=== PATIENT | female | born 1950 | race Caucasian/White ===

== ENCOUNTER 2016-11-11 05:38 | Emergency (ER) | payer MEDICARE, MEDICAID ==
[2016-11-11 05:49] VITALS: BP 140/74
[2016-11-11] MEDS ORDERED: Ketorolac 60 MG/2 ML SDV IM ONE (06:07)
[2016-11-11] MEDS ORDERED: Take Home: traMADol 50 MG, 4 Tab Pack PO ONE (06:11)
[2016-11-11] MEDS ORDERED: Take Home: Orphenadrine 100 MG Tab.ER, 4 Tab Pack PO ONE (06:12)
--- NOTE | 2016-11-11 06:27 | EDM.PDOC ---
ED HPI GENERAL MEDICAL PROBLEM - General Chief Complaint: Back Pain or Injury Stated Complaint: Back Pain Time Seen by Provider: 11/11/16 06:01 Source of Information: Reports: Patient History Limitations: Reports: No Limitations - History of Present Illness INITIAL COMMENTS - FREE TEXT/NARRATIVE: Patient states that she has chronic back pain which she is usually able to control with Ibuprofen, tylenol and a tens unit. She has been unsuccessful this time in treating her back pain. She states that it started yesterday all along the left lower part of her back. The pain does not radiate anywhere. She denies fever, chills, change in urinary pattern or pain with urination. She denies flank pain, SOB, cough, and chest pain. She has no history of a kidney stone. She denies recent and remote injury. She has a right lower extremity deformity which alters her posture and ability to walk normally. Onset: Gradual Onset Date: 11/11/16 Onset Time: 01:00 Duration: Hour(s): (6), Waxing/Waning (comes in spasms) Location: Reports: Back (L1 down to L5 on the left side) Quality: Reports: Ache, Sharp, Stabbing Severity: Moderate Improves with: Reports: None Worsens with: Reports: Movement Context: Reports: Activity, Lifting Associated Symptoms: Reports: No Other Symptoms Treatments [employer]: Reports: Acetaminophen, NSAIDS, Other (see below) (Tens unit) Back Pain Score (Numeric/FACES): 8 - Related Data Allergies Allergy/AdvReac Type Severity Reaction Status Date / Time No Known Allergies Allergy Verified 11/11/16 05:43 Home Meds: Home Meds Lisinopril 20 mg PO DAILY 08/23/16 [History] Omeprazole 20 mg PO BIDAC 08/23/16 [History] tiZANidine [Zanaflex] 4 mg PO Q6H #40 tablet 11/11/16 [Rx] traMADol [Ultram] 50 mg PO Q6H #40 tablet 11/11/16 [Rx] Past Medical History HEENT History: Reports: Otitis Media Cardiovascular History: Reports: Hypertension Gastrointestinal History: Reports: GERD - Past Surgical History Musculoskeletal Surgical History: Reports: Knee Replacement Social & Family History - Tobacco Use Smoking Status *Q: Former Smoker ED ROS GENERAL - Review of Systems Review Of Systems: See Below Constitutional: Reports: No Symptoms HEENT: Reports: No Symptoms Respiratory: Reports: No Symptoms Cardiovascular: Reports: No Symptoms Endocrine: Reports: No Symptoms GI/Abdominal: Reports: No Symptoms : Reports: No Symptoms Musculoskeletal: Reports: Back Pain, Muscle Pain, Muscle Stiffness Skin: Reports: No Symptoms Neurological: Reports: No Symptoms Psychiatric: Reports: No Symptoms Hematologic/Lymphatic: Reports: No Symptoms Immunologic: Reports: No Symptoms ED EXAM,LOWER BACK PAIN/INJURY - Physical Exam Exam: See Below Exam Limited By: No Limitations General Appearance: Alert, WD/WN, No Apparent Distress Head: Atraumatic, Normocephalic Neck: Normal Inspection, Supple, Non-Tender, Full Range of Motion Respiratory/Chest: No Respiratory Distress, Lungs Clear, Normal Breath Sounds, No Accessory Muscle Use, Chest Non-Tender Cardiovascular: Normal Peripheral Pulses, Regular Rate, Rhythm, No Edema, No Gallop, No JVD, No Murmur, No Rub GI/Abdominal: Normal Bowel Sounds, Soft, Non-Tender, No Organomegaly, No Distention, No Abnormal Bruit, No Mass, Other (No CVA tenderness) Back Exam: Normal Inspection, Decreased Range of Motion, Muscle Spasm, Paraspinal Tenderness, Vertebral Tenderness Extremities: Normal Inspection, Normal Range of Motion, Non-Tender, No Pedal Edema, Normal Capillary Refill, Other (Straight leg raise is negative. 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.) Neurological: Alert, Normal Mood/Affect, Normal Dorsiflexion, CN II-XII Intact, Normal Plantar Flexion, Normal Reflexes, No Motor/Sensory Deficits, Oriented x 3 , Abnormal Gait (walks with limp on the right side ) DTR - Lower Extremities: 2+: Knee (R), Knee (L), Ankle (R), Ankle (L) Psychiatric: Normal Affect, Normal Mood Skin Exam: Warm, Dry, Intact, Normal Color, No Rash Course - Vital Signs Last Recorded V/S: Last Vital Signs Temp 36.2 C 11/11/16 05:45 Pulse 74 11/11/16 05:45 Resp 16 11/11/16 05:45 BP 140/74 11/11/16 05:45 Pulse Ox 98 11/11/16 05:45 - Orders/Labs/Meds Orders: Active Orders 24 hr Category Date Time Status Orphenadrine [Norflex] Med 11/11/16 06:15 Ordered 60 mg IM Q12H Medication Orders Orphenadrine Citrate (Norflex) 60 mg IM Q12H [facility] Meds: Medications Generic Name Dose Route Start Last Admin Trade Name Vicki PRN Reason Stop Dose Admin Orphenadrine Citrate 60 mg 11/11/16 06:15 Norflex IM Q12H SALLY Discontinued Medications Generic Name Dose Route Start Last Admin Trade Name Vicki PRN Reason Stop Dose Admin Ketorolac Tromethamine 60 mg 11/11/16 06:07 Toradol IM 11/11/16 06:08 ONETIME ONE Orphenadrine Citrate 1 packet 11/11/16 06:12 Take Home: Orphenadrine 100 Mg, 4 Tab Pack PO 11/11/16 06:13 ONETIME ONE Tramadol HCl 1 packet 11/11/16 06:11 Take Home: Tramadol 50 Mg, 4 Tab Pack PO 11/11/16 06:12 ONETIME ONE - Re-Assessments/Exams Free Text/Narrative Re-Assessment/Exam: 11/11/16 06:32 The patient is given injections of orphenadrine 60 mg IMand toradol 60 mg IM. She states that he pain is better and down to 5/10. She is given take home meds for tamadol and orphenadrine enough for 4 tablets of each today and then prescriptions for both to last her ten days. 11/11/16 06:41 Departure - Departure Time of Disposition: 06:45 Disposition: Home, Self-Care 01 Condition: good Clinical Impression: Back pain at L4-L5 level, Back pain of thoracolumbar region - Discharge Information Prescriptions: tiZANidine [Zanaflex] 4 mg PO Q6H #40 tablet traMADol [Ultram] 50 mg PO Q6H #40 tablet Instructions: Muscle Strain, [id number], Back Pain, Adult, [id number], Back Injury Prevention, [id number] Forms: ED Department Discharge - My Orders Last 24 Hours: My Active Orders 11/11/16 06:15 Orphenadrine [Norflex] 60 mg IM Q12H - Assessment/Plan Last 24 Hours: My Active Orders 11/11/16 06:15 Orphenadrine [Norflex] 60 mg IM Q12H Assessment:: Thoracic and Lumbar back pain Plan: Stretch and exercise daily. Use the muscle relaxant and pain medication as prescribed. Please don't drink alcohol or drive while taking the medication I have prescribed for you. You may use heat and ibuprofen as directed on the package .
== END 2016-11-11 06:50 | disposition home or self-care (01) ==
LOC: VM.ED 05:38
DX: M54.5 Low back pain (principal); M54.6 Pain in thoracic spine; I10 Essential (primary) hypertension; K21.9 Gastro-esophageal reflux disease without esophagitis; Z79.899 Other long term (current) drug therapy; Z96.659 Presence of unspecified artificial knee joint; Z87.891 Personal history of nicotine dependence
CPT/HCPCS: 96372; 99283; A9270; J1885; J2360

== ENCOUNTER 2017-11-11 22:00 | Emergency (ER) | payer MEDICARE, MEDICAID ==
[2017-11-11] MEDS ORDERED: Ketorolac 30 MG/ML SDV IM ONE (22:32)
[2017-11-11] MEDS ORDERED: Take Home: traMADol 50 MG, 4 Tab Pack PO ONE (22:32)
[2017-11-11] MEDS ORDERED: predniSONE 20 MG Tab PO ONE (22:32)
--- NOTE | 2017-11-11 22:37 | EDM.PDOC ---
ED HPI GENERAL MEDICAL PROBLEM - General Chief Complaint: Back Pain or Injury Stated Complaint: neck pain Time Seen by Provider: 11/11/17 22:08 Source of Information: Reports: Patient History Limitations: Reports: No Limitations - History of Present Illness INITIAL COMMENTS - FREE TEXT/NARRATIVE: Patient presents with neck pain for the last 4-5 days that intensified this evening. She has tried heat, ice, and tylenol. Took extra tizanadine. 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 No nausea, vomiting, shortness of breath, headache. Pain localized to left side of neck and shoulder. Limited range of motion. No recent injury or fall. Muscle tightness to the left neck. No fever, chills or night sweats. Onset: Gradual Onset Date: 11/07/17 Duration: Getting Worse Location: Reports: Neck Quality: Reports: Ache Severity: Moderate Improves with: Reports: Medication Worsens with: Reports: Movement - Related Data Allergies Allergy/AdvReac Type Severity Reaction Status Date / Time acetaminophen Allergy Vomiting Verified 11/11/17 22:11 [From Tylenol-Codeine #3] codeine Allergy Vomiting Verified 11/11/17 22:11 [From Tylenol-Codeine #3] Home Meds: Home Meds Omeprazole 20 mg PO BIDAC 08/23/16 [History] Lisinopril/Hydrochlorothiazide [Lisinopril-Hctz 20-12.5 mg Tab] 2 tab PO DAILY 11/11/17 [History] amLODIPine Besylate [Amlodipine Besylate] 5 mg PO DAILY 11/11/17 [History] tiZANidine [Zanaflex] 4 mg PO TID PRN 11/11/17 [History] Past Medical History HEENT History: Reports: Otitis Media Cardiovascular History: Reports: Hypertension Gastrointestinal History: Reports: GERD Musculoskeletal History: Reports: Back Pain, Chronic - Past Surgical History Musculoskeletal Surgical History: Reports: Knee Replacement Social & Family History - Tobacco Use Smoking Status *Q: Former Smoker Years of Tobacco use: 40 Packs/Tins Daily: 1.5 Used Tobacco, but Quit: Yes Month/Year Tobacco Last Used: 8 years ago ED ROS GENERAL - Review of Systems Review Of Systems: See Below Constitutional: Reports: No Symptoms HEENT: Reports: No Symptoms Respiratory: Reports: No Symptoms Cardiovascular: Reports: No Symptoms Endocrine: Reports: No Symptoms GI/Abdominal: Reports: No Symptoms : Reports: No Symptoms Musculoskeletal: Reports: Neck Pain Skin: Reports: No Symptoms Neurological: Reports: No Symptoms Psychiatric: Reports: No Symptoms Hematologic/Lymphatic: Reports: No Symptoms Immunologic: Reports: No Symptoms ED EXAM, UPPER BACK/NECK PAIN - Physical Exam Exam: See Below Exam Limited By: No Limitations General Appearance: Alert, WD/WN, Mild Distress Eye Exam: Bilateral Eye: EOMI, Normal Inspection, PERRL Ears Exam: Normal TMs Nose Exam: Normal Inspection, Normal Mucousa, No Blood Throat/Mouth Exam: Normal Inspection, Normal Lips, Normal Teeth, Normal Gums, Normal Oropharynx, Normal Voice, No Airway Compromise Head Exam: Atraumatic, Normocephalic Neck Exam: Stiff Neck, Tenderness Cardiovascular/Respiratory: Regular Rate, Rhythm, No M/R/G, Normal Peripheral Pulses, No JVD, Normal Breath Sounds, No Respiratory Distress GI/Abdominal: Normal Bowel Sounds, Soft, Non-Tender, No Organomegaly, No Distention, No Abnormal Bruit, No Mass Back Exam: Normal Inspection, Full Range of Motion, NT Extremities: Normal Inspection, Normal Range of Motion, Non-Tender, No Pedal Edema, Normal Capillary Refill 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, No Motor/Sensory Deficits, Alert, Normal Mood/Affect, Oriented x 3 Psychiatric: Normal Affect, Normal Mood Skin Exam: Normal Color, Warm/Dry Lymphatic: No Adenopathy Course - Vital Signs Last Recorded V/S: Last Vital Signs Temp 35.1 C L 11/11/17 22:04 Pulse 88 11/11/17 22:04 Resp 20 11/11/17 22:04 BP Pulse Ox 96 11/11/17 22:04 - Orders/Labs/Meds Meds: Medications Discontinued Medications Generic Name Dose Route Start Last Admin Trade Name Freq PRN Reason Stop Dose Admin Ketorolac Tromethamine 30 mg 11/11/17 22:32 11/11/17 22:44 Toradol IM 11/11/17 22:33 30 mg ONETIME ONE Administration Prednisone 20 mg 11/11/17 22:32 11/11/17 22:42 Prednisone PO 11/11/17 22:33 20 mg ONETIME ONE Administration Tramadol HCl 1 packet 11/11/17 22:32 11/11/17 22:42 Take Home: Tramadol 50 Mg, 4 Tab Pack PO 11/11/17 22:33 1 packet ONETIME ONE Administration Departure - Departure Time of Disposition: 22:44 Disposition: Home, Self-Care 01 Condition: Good Clinical Impression: Neck pain on left side - Discharge Information Instructions: Cervical Radiculopathy, [id number] Referrals: Barney Cazares MD [Physician] - Forms: ED Department Discharge Additional Instructions: Follow up with your primary provider for additional testing if your pain does not improve over the next 2-3 days. Physical therapy evaluation should also be considered. MRI may be needed which we do not offer on an emergent basis. Please continue alternating heat and ice. I did prescribe 500 mg of naproxen and a medrol dose pack for inflammation and swelling. Please take both of these medications with food as they can be hard on the stomach. Please call us if you have any further questions or concerns. - Problem List & Annotations (1) Neck pain on left side SNOMED Code(s): 77843754 Code(s): M54.2 - CERVICALGIA Status: Acute Priority: Medium Current Visit: No - Problem List Review Problem List Initiated/Reviewed/Updated: Yes - Assessment/Plan Assessment:: left sided neck pain Plan: Follow up with your primary provider for additional testing if your pain does not improve over the next 2-3 days. MRI may be needed which we do not offer on an emergent basis. Please continue alternating heat and ice. I did prescribe 500 mg of naproxen and a medrol dose pack for inflammation and swelling. Please take both of these medications with food as they can be hard on the stomach. Please call us if you have any further questions or concerns.
== END 2017-11-11 22:55 | disposition home or self-care (01) ==
LOC: VM.ED 22:00
DX: M54.2 Cervicalgia (principal); I10 Essential (primary) hypertension; K21.9 Gastro-esophageal reflux disease without esophagitis; Z87.891 Personal history of nicotine dependence; Z79.899 Other long term (current) drug therapy; Z88.5 Allergy status to narcotic agent; Z88.6 Allergy status to analgesic agent
CPT/HCPCS: 96372; 99283; 99283-GF; A9270-GY; J1885

== ENCOUNTER 2017-12-22 20:12 | Emergency (ER) | payer MEDICARE, MEDICAID ==
[2017-12-22 20:27] VITALS: BP 122/62
[2017-12-22] MEDS ORDERED: Take Home: Acetaminophen/HYDROcodone 325-5 MG, 5 Tab Pack PO ONE (20:47)
--- NOTE | 2017-12-23 02:17 | EDM.PDOC ---
ED HPI GENERAL MEDICAL PROBLEM - General Chief Complaint: Back Pain or Injury Stated Complaint: BACK ACHE Time Seen by Provider: 12/22/17 20:21 Source of Information: Reports: Patient History Limitations: Reports: No Limitations - History of Present Illness INITIAL COMMENTS - FREE TEXT/NARRATIVE: Pt. presents to ER with complaints of acute on chronic low back pain. She states that she has been doing some more lifting/physical activity and feels she may have injured it, but denies any specific trauma and denies radiculopathy. No fever or chills. Denies any lower extremity weakness. She states that he has had chronic back pain since childhood but states the discomfort is worse than normal. Duration: Constant Location: Reports: Back Quality: Reports: Ache Severity: Severe Mid Back - More to Left Pain Score (Numeric/FACES): 9 - Related Data Allergies Allergy/AdvReac Type Severity Reaction Status Date / Time codeine Allergy Vomiting Verified 12/22/17 20:28 [From Tylenol-Codeine #3] Home Meds: Home Meds Omeprazole 20 mg PO BIDAC 08/23/16 [History] Lisinopril/Hydrochlorothiazide [Lisinopril-Hctz 20-12.5 mg Tab] 2 tab PO DAILY 11/11/17 [History] amLODIPine Besylate [Amlodipine Besylate] 5 mg PO BEDTIME 11/11/17 [History] tiZANidine [Zanaflex] 4 mg PO TID PRN 11/11/17 [History] Past Medical History HEENT History: Reports: Otitis Media Cardiovascular History: Reports: Hypertension Gastrointestinal History: Reports: GERD Musculoskeletal History: Reports: Back Pain, Chronic - Past Surgical History Musculoskeletal Surgical History: Reports: Knee Replacement Social & Family History - Tobacco Use Smoking Status *Q: Former Smoker Used Tobacco, but Quit: Yes Month/Year Tobacco Last Used: 2009 - Recreational Drug Use Recreational Drug Use: No ED ROS GENERAL - Review of Systems Review Of Systems: See Below Constitutional: Reports: No Symptoms HEENT: Reports: No Symptoms Respiratory: Reports: No Symptoms Cardiovascular: Reports: No Symptoms Endocrine: Reports: No Symptoms GI/Abdominal: Reports: No Symptoms. Denies: Stool Incontinence : Reports: No Symptoms Musculoskeletal: Reports: Back Pain. Denies: Leg Pain, Foot Pain Skin: Reports: No Symptoms Neurological: Reports: No Symptoms Psychiatric: Reports: No Symptoms ED EXAM, GENERAL - Physical Exam Exam: See Below Exam Limited By: No Limitations General Appearance: Alert, WD/WN, No Apparent Distress Respiratory/Chest: No Respiratory Distress, Lungs Clear, Normal Breath Sounds, No Accessory Muscle Use, Chest Non-Tender Cardiovascular: Normal Peripheral Pulses, Regular Rate, Rhythm, No Edema, No Gallop, No JVD, No Murmur, No Rub Back Exam: Decreased Range of Motion, Muscle Spasm, Paraspinal Tenderness, Vertebral Tenderness. No: CVA Tenderness (L), CVA Tenderness (R) Course - Vital Signs Last Recorded V/S: Last Vital Signs Temp 36.4 C 12/22/17 20:21 Pulse 71 12/22/17 20:21 Resp 16 12/22/17 20:21 BP 122/62 12/22/17 20:21 Pulse Ox 98 12/22/17 20:21 - Orders/Labs/Meds Meds: Medications Discontinued Medications Generic Name Dose Route Start Last Admin Trade Name Freq PRN Reason Stop Dose Admin Hydrocodone Bitart/Acetaminophen 1 packet 12/22/17 20:47 12/22/17 20:54 Take Home: Acetam/Hydrocodon 325-5 Mg, 5 Pack PO 12/22/17 20:48 1 packet ONETIME ONE Administration Departure - Departure Time of Disposition: 20:50 Disposition: Home, Self-Care 01 Condition: Good Clinical Impression: Low back pain - Discharge Information Instructions: Acetaminophen; Hydrocodone tablets or capsules, Back Pain, Adult Referrals: Barney Cazares MD [Primary Care Provider] - Forms: ED Department Discharge Additional Instructions: [place] 5/325mg 1 tablet every 6 hours as needed for pain. Follow-up in clinic tomorrow for further meds. - Assessment/Plan Plan: Continue with tizanidine. She was given a 5 pack of norco 5/325mg with instructions to take one every 6 hours. Follow-up with primary care if not gradually improving. She has an appointment for tomorrow.
== END 2017-12-22 21:00 | disposition home or self-care (01) ==
LOC: VM.ED 20:12
DX: M54.5 Low back pain (principal); G89.29 Other chronic pain; K21.9 Gastro-esophageal reflux disease without esophagitis; Z87.891 Personal history of nicotine dependence; Z88.5 Allergy status to narcotic agent
CPT/HCPCS: 99283; A9270

== ENCOUNTER 2019-01-31 19:50 | Emergency (ER) | payer MEDICAID, MEDICARE ==
[2019-01-31] MEDS ORDERED: Ketorolac 30 MG/ML SDV IM ONE (20:02)
--- NOTE | 2019-01-31 20:08 | EDM.PDOC ---
ED HPI GENERAL MEDICAL PROBLEM - General Stated Complaint: BACK PAIN/SPASM Time Seen by Provider: 01/31/19 19:55 Source of Information: Reports: Patient History Limitations: Reports: No Limitations - History of Present Illness INITIAL COMMENTS - FREE TEXT/NARRATIVE: Patient states that upon waking up this morning she started having a back spasm to the left side approximately T8 area she is as on the right chronically which she takes Zanaflex for. But today she is only taken 2 and it is not work she also states that she took 2 Motrin and it is not helping at all she decided come to the emergency room for shot. Which she states the only time it flares up and she has to come as on the weekends to the emergency room. She states this is been going on for years she has no trauma no change in symptoms describes it as a sharp throbbing 9 out of 10. 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 - Related Data Allergies Allergy/AdvReac Type Severity Reaction Status Date / Time codeine Allergy Vomiting Verified 12/22/17 20:28 [From Tylenol-Codeine #3] Home Meds: Home Meds Omeprazole 20 mg PO BIDAC 08/23/16 [History] Lisinopril/Hydrochlorothiazide [Lisinopril-Hctz 20-12.5 mg Tab] 2 tab PO DAILY 11/11/17 [History] amLODIPine Besylate [Amlodipine Besylate] 5 mg PO BEDTIME 11/11/17 [History] tiZANidine [Zanaflex] 4 mg PO TID PRN 11/11/17 [History] Past Medical History HEENT History: Reports: Otitis Media Cardiovascular History: Reports: Hypertension Gastrointestinal History: Reports: GERD Musculoskeletal History: Reports: Back Pain, Chronic - Past Surgical History Musculoskeletal Surgical History: Reports: Knee Replacement ED ROS GENERAL - Review of Systems Review Of Systems: See Below Constitutional: Reports: No Symptoms GI/Abdominal: Reports: No Symptoms : Reports: No Symptoms Musculoskeletal: Reports: Back Pain Skin: Reports: No Symptoms Neurological: Reports: No Symptoms Psychiatric: Reports: No Symptoms Hematologic/Lymphatic: Reports: No Symptoms Immunologic: Reports: No Symptoms ED EXAM,LOWER BACK PAIN/INJURY - Physical Exam Exam: See Below Exam Limited By: No Limitations General Appearance: Alert, WD/WN, No Apparent Distress, Other (Patient with normal gait while using her cane which she has used for years) Back Exam: Normal Inspection, Full Range of Motion, Other (No noted rashes no CVA tenderness mild spasm noted approximately at T7 area lateral aspects of the paraspinal muscles she has no midline tenderness palpation no CVA tenderness palpation) Extremities: Normal Inspection, Normal Range of Motion, Non-Tender, No Pedal Edema, Other (5/5 upper and lower extremity strength 2+ DTR bilateral normal dorsiflexion or plantarflexion normal straight leg raises) Neurological: Alert, Normal Mood/Affect, Normal Dorsiflexion, CN II-XII Intact, Normal Plantar Flexion, Normal Gait, Normal Reflexes, No Motor/Sensory Deficits , Oriented x 3 Psychiatric: Normal Affect, Normal Mood Skin Exam: Warm, Dry, Intact, Normal Color, No Rash Course - Vital Signs Text/Narrative:: Patient will be given 30 mg of IM Toradol she states she has no renal issues takes no blood thinners has plenty of Zanaflex at home - Orders/Labs/Meds Meds: Medications Discontinued Medications Generic Name Dose Route Start Last Admin Trade Name Freq PRN Reason Stop Dose Admin Ketorolac Tromethamine 30 mg 01/31/19 20:02 Toradol IM 01/31/19 20:03 ONETIME ONE Departure - Departure Time of Disposition: 20:10 Disposition: Home, Self-Care 01 Condition: Good Clinical Impression: Back pain - Discharge Information *PRESCRIPTION DRUG MONITORING PROGRAM REVIEWED*: No *COPY OF PRESCRIPTION DRUG MONITORING REPORT IN PATIENT VÍCTOR: No - Problem List & Annotations (1) Back pain at L4-L5 level SNOMED Code(s): 372616854 Code(s): M54.5 - LOW BACK PAIN Status: Acute (2) Back pain SNOMED Code(s): 255525810 Code(s): M54.9 - DORSALGIA, UNSPECIFIED Status: Acute
[2019-01-31 21:02] VITALS: BP 177/67; PULSE 80
== END 2019-01-31 20:25 | disposition home or self-care (01) ==
LOC: VM.ED 19:50 → SUPCPDRO 19:50 → VM.ED 20:25
DX: M62.830 Muscle spasm of back (principal); I10 Essential (primary) hypertension; K21.9 Gastro-esophageal reflux disease without esophagitis; Z79.899 Other long term (current) drug therapy; Z88.5 Allergy status to narcotic agent
CPT/HCPCS: 96372; 99283; J1885